=== PATIENT | male | born 1965 | race Asian ===

== ENCOUNTER 2023-11-02 18:19 | Emergency (ER) | payer BC ==
[~2023-11-02] VITALS: Ht 180.3 cm; Wt 86.0 kg
[2023-11-02 18:27] VITALS: BP 134/86; PULSE 69; RESP 20; TEMP 98.6; O2SAT 97
== END 2023-11-02 20:21 | disposition home or self-care (01) ==
LOC: ER 18:19
DX: M25.562 Pain in left knee (principal); I10 Essential (primary) hypertension; M10.9 Gout, unspecified; Z87.442 Personal history of urinary calculi; Z98.890 Other specified postprocedural states
CPT/HCPCS: 99281